=== PATIENT | female | born 1990 | race African-American/Black ===

== ENCOUNTER 2018-08-20 12:49 | Emergency (ER) | payer MEDICAID, OTHER ==
[~2018-08-20] VITALS: Ht 162.6 cm; Wt 52.0 kg
[2018-08-20 13:01] VITALS: BP 100/53
== END 2018-08-20 17:12 | disposition home or self-care (01) ==
LOC: ER 13:46
DX: S63.601A Unspecified sprain of right thumb, initial encounter (principal); F17.200 Nicotine dependence, unspecified, uncomplicated; Y04.0XXA Assault by unarmed brawl or fight, initial encounter; Y93.89 Activity, other specified; Y92.018 Other place in single-family (private) house as the place of occurrence of the external cause
CPT/HCPCS: 29130; 73140; 81025; 99283

== ENCOUNTER 2018-10-10 14:53 | Emergency (ER) | payer OTHER ==
[~2018-10-10] VITALS: Ht 167.6 cm; Wt 57.0 kg
[2018-10-10 17:12] VITALS: BP 100/60
== END 2018-10-10 18:53 | disposition left against medical advice (07) ==
LOC: ER 14:53
DX: Z53.21 Procedure and treatment not carried out due to patient leaving prior to being seen by health care provider (principal)